=== PATIENT | male | born 2000 | race Caucasian/White ===

== ENCOUNTER 2024-01-06 12:14 | Emergency (ER) | payer OTHER, SELFPAY ==
--- NOTE | 2024-01-06 12:16 | ECG_ITS ---
Test Reason : cp Blood Pressure : / mmHG Vent. Rate : 068 BPM Atrial Rate : 068 BPM P-R Int : 140 ms QRS Dur : 082 ms QT Int : 362 ms P-R-T Axes : 058 008 017 degrees QTc Int : 384 ms Sinus rhythm with marked sinus arrhythmia with occasional Premature ventricular complexes Otherwise normal ECG No previous ECGs available Referred By: Farnaz Aldridge Electronically Signed By:Jourdan Tapia
== END 2024-01-06 13:37 | disposition left against medical advice (07) ==
LOC: HO.ED 13:21
PROVIDERS: Emergency Provider Emergency Medicine
DX: R07.89 Other chest pain (principal); R06.02 Shortness of breath
CPT/HCPCS: 93005; 99281; 99282

== ENCOUNTER → 2024-01-06 12:16 | Outpatient (BNV) | payer OTHER, SELFPAY | PROVIDERS: Emergency Provider Emergency Medicine; Visit Provider Internal Medicine Cardiovascular Disease | DX: R07.9 Chest pain, unspecified (principal) | CPT/HCPCS: 93010 ==